=== PATIENT | male | born 1960 | race Caucasian/White ===

== ENCOUNTER 2022-10-08 08:34 | Day surgery (SDC) | payer BC ==
[~2022-10-08] VITALS: Ht 165.1 cm; Wt 86.7 kg
[~2022-10-08 08:34] MED LIST: ACET500 PO; IBUP800 PO
--- NOTE | 2022-10-08 09:50 | NUR ---
Ambulatory in Day Surgery. History, Chart, Medications and Allergies reviewed before start of procedure.Lungs clear T/O to Auscultation. Patient confirms NPO status and agrees with scheduled surgery. Pre-Op teaching done. Pt verbalizes understanding.
--- NOTE | 2022-10-08 17:34 | NUR ---
SHIFT SUMMARY PATIENT NEW ADMIT TO UNIT POD [address] PATTERSON. ALERT AND ORIENTED. POST OP VSS. TOLERATING WATER AND SNACKS. SPINAL STILL IN EFFECT AT THIS TIME. DENIES PAIN, ABLE TO WIGGLE LEFT ANKLE AND TOES. AQUACEL C/D/I. NO VOID AT THIS TIME. NOT OOB AT THIS TIME. IV FLUID RUNNING. WILL CONTINUE TO MONITOR.
--- NOTE | 2022-10-09 04:12 | NUR ---
SHIFT SUMMARY S/P L TKA. SLEPT WELL T/O NIGHT. AQUACEL DRESSING REMAINS CDI WITH POLAR PACK IN PLACE. UP WITH 1 MINIMAL ASSIST USING FWW + GB TO BRP. 2 ROXICODONE/TYLENOL/TORADOL FOR PAIN MANAGEMENT. ROXIE PO. PLANNING TO DC HOME TODAY AFTER THERAPY. USES CALL LIGHT APPROPRIATELY.
[2022-10-09 05:19] LABS: BASOPHILS ABSOLUTE AUTO 0.03 K/mm3 (0.00-0.23); BASOPHILS PERCENT AUTO 0 % (0-2); EOSINOPHILS ABSOLUTE AUTO 0.02 K/mm3 (0.00-0.68); EOSINOPHILS PERCENT AUTO 0 % (0-6); Hematocrit 39.3 % (37.0-53.0); Hemoglobin 13.5 g/dL (13.5-17.5); IMMATURE GRAN ABSOLUTE AUTO 0.06 K/mm3 (0.00-0.10); IMMATURE GRAN PERCENT AUTO 0 % (0-1); LYMPHOCYTES ABSOLUTE AUTO 1.01 K/mm3 (0.84-5.20); LYMPHOCYTES PERCENT AUTO 7 % (21-46); MONOCYTES ABSOLUTE AUTO 1.35 K/mm3 (0.16-1.47); MONOCYTES PERCENT AUTO 9 % (4-13); Mean Corpuscular HGB 30.5 pg (26.0-34.0); Mean Corpuscular HGB Conc 34.4 g/dL (31.5-36.5); Mean Corpuscular Volume 89 fL (80-100); Mean Platelet Volume 10.8 fL (9.1-12.4); NEUTROPHILS ABSOLUTE AUTO 11.86 K/mm3 (1.96-9.15); NEUTROPHILS PERCENT AUTO 83 % (41-73); Platelet Count 255 K/mm3 (150-400); RDW Coefficient Variation 12.2 % (11.7-14.2); RDW Standard Deviation 39.6 fL (35.1-46.3); Red Blood Cell Count 4.43 M/mm3 (4.30-5.90); White Blood Cell Count 14.33 K/mm3 (4.00-11.30)
[2022-10-09 05:39] LABS: Bun/Creatinine Ratio 17.1 (12.0-20.0); Calcium, Blood 8.5 mg/dL (8.5-10.1); Creatinine, Blood 0.82 mg/dL (0.60-1.20); Potassium, Blood 4.4 mmol/L (3.5-5.5)
[2022-10-09] MEDS ORDERED: ASPI81CH PO (07:10)
[2022-10-09] MEDS ORDERED: Percocet 5-3251 EACH PO (07:11)
--- NOTE | 2022-10-09 10:34 | NUR ---
DISCHARGE PT HAS CLEARED THERAPY. PAIN WELL CONTROLLED PER EMAR. EATING, DRINKING, & VOIDING WELL. AMBULATING WELL W/ FWW & GB. DISCUSSED DISCHARGE INSTRUCTIONS & SENT WITH PATIENT. ALSO SENT DRESSINGS, SCRIPTS, & POLAR PACK WITH PT. ESCORTED OUT VIA W/C.
== END 2022-10-09 10:33 | disposition home or self-care (01) ==
LOC: ORSCMMR 08:34 → ORD 10:00 → SURS 15:08 → ORSCMMR 10-09 10:33
PROVIDERS: Orthopaedic Surgery
PROC: 0QPH04Z Removal of Internal Fixation Device from Left Tibia, Open Approach (ICD-10-PCS; principal; 2022-10-08 10:00)
PROC: 0SRD0JA Replacement of Left Knee Joint with Synthetic Substitute, Uncemented, Open Approach (ICD-10-PCS; principal; 2022-10-08 10:00)
PROC: 8E0Y0CZ Robotic Assisted Procedure of Lower Extremity, Open Approach (ICD-10-PCS; principal; 2022-10-08 10:00)
DX: M17.12 Unilateral primary osteoarthritis, left knee (principal)
CPT/HCPCS: 27447; 20985; S2900; 36415; 73560-LT; 80048; 85025; 97110; 97116; 97161; 97530; A9270; C1776; J0171; J0690; J0735; J1885; J2250; J2370; J2704; J2795; J3010; J3370; J7120

== ENCOUNTER 2023-06-17 06:02 | Day surgery (SDC) | payer BC ==
[2023-06-17] VITALS (15 sets, daily range): BP systolic 105–148; BP diastolic 65–88
[~2023-06-17] VITALS: Ht 165.1 cm; Wt 90.9 kg
[~2023-06-17 06:02] MED LIST changes: +ASPI81CH PO; +Percocet 5-3251 EACH PO
--- NOTE | 2023-06-17 07:39 | NUR ---
Surgical site prepped with 2% Chlorhexidine cloth wipe. ARRIVED TO UNIT VIA W/C WAS ABLE TO STAND FOR WEIGHT WELL WALK FROM SCALE TO BED INDEPENDENTLY. History, Chart, Medications and Allergies reviewed before start of procedure. Lungs clear T/O to Auscultation. Patient confirms NPO status and agrees with scheduled surgery. Pre-Op teaching done. Pt verbalizes understanding. BELONGINS PLACED UNDER PT'S GURNEY.
--- NOTE | 2023-06-17 10:21 | NUR ---
CARE ASSUMED OF PATIENT AT 1000. PT RESTING IN BED WITH S/O AT THE BEDSIDE. PT UNABLE TO MOVE OR FEEL BLE R/T SPINAL ANESTHESIA. DRESSING TO R HIP C/D/I. SPINAL ANESTHESIA SITE WNL.
--- NOTE | 2023-06-17 16:00 | NUR ---
Pt. is awake in bed and welcomes my visit. Pt. is pleasant and confidantly shares his herb tradition with this pump servicer. Consider matters of herb and belief and in the process rapport is established. Pts. arrived and we continued to facilitate a life review. Pt. displays evidence of being engaged, aware and fully committed to pursue his PT and recovery. PT arrived to work with Pt. Pt. and spouse both verbalize gratitude for the spiritual care visit and welcome this pump servicer to return.
--- NOTE | 2023-06-17 18:00 | NUR ---
SHIFT SUMMARY PT IS POD#0 FROM R [place] WITH DR. PATTERSON. PAIN HAS BEEN MANAGED WITH PO PAIN MEDICATION. PT IS TOLERATING PO. HE HAS WORKED WITH THERAPY. PT ABLE TO VOID. PT RESTING IN CHAIR, CALL LIGHT WITHIN REACH.
[2023-06-18 00:16] VITALS: BP 138/83
[2023-06-18 04:15] VITALS: BP 148/84
--- NOTE | 2023-06-18 04:55 | NUR ---
SUMMARY PT DISCOMFORT HAS BEEN MINIMAL. PT HAS BEEN AMBULATING WITH GB AND FWW. PT VOIDING WELL AND TAKING IN PO FLUIDS. PT HAS SLEPT SOME DURING SHIFT. DRESSING C/D/I. CALL LIGHT IN REACH.
[2023-06-18 05:31] LABS: BASOPHILS ABSOLUTE AUTO 0.03 K/mm3 (0.00-0.23); BASOPHILS PERCENT AUTO 0 % (0-2); EOSINOPHILS ABSOLUTE AUTO 0.05 K/mm3 (0.00-0.68); EOSINOPHILS PERCENT AUTO 0 % (0-6); Hematocrit 37.4 % (37.0-53.0); Hemoglobin 12.9 g/dL (13.5-17.5); IMMATURE GRAN ABSOLUTE AUTO 0.06 K/mm3 (0.00-0.10); IMMATURE GRAN PERCENT AUTO 1 % (0-1); LYMPHOCYTES ABSOLUTE AUTO 1.01 K/mm3 (0.84-5.20); LYMPHOCYTES PERCENT AUTO 8 % (21-46); MONOCYTES ABSOLUTE AUTO 1.67 K/mm3 (0.16-1.47); MONOCYTES PERCENT AUTO 13 % (4-13); Mean Corpuscular HGB 31.3 pg (26.0-34.0); Mean Corpuscular HGB Conc 34.5 g/dL (31.5-36.5); Mean Corpuscular Volume 91 fL (80-100); Mean Platelet Volume 11.2 fL (9.1-12.4); NEUTROPHILS ABSOLUTE AUTO 10.43 K/mm3 (1.96-9.15); NEUTROPHILS PERCENT AUTO 79 % (41-73); Platelet Count 203 K/mm3 (150-400); RDW Coefficient Variation 11.9 % (11.7-14.2); RDW Standard Deviation 39.6 fL (35.1-46.3); Red Blood Cell Count 4.12 M/mm3 (4.30-5.90); White Blood Cell Count 13.25 K/mm3 (4.00-11.30)
[2023-06-18 06:04] LABS: Bun/Creatinine Ratio 17.8 (12.0-20.0); Calcium, Blood 8.3 mg/dL (8.5-10.1); Creatinine, Blood 0.85 mg/dL (0.60-1.20); Potassium, Blood 4.2 mmol/L (3.5-5.5)
[2023-06-18 08:07] VITALS: BP 147/83
[2023-06-18] MEDS ORDERED: ASPI81CH PO (08:09)
[2023-06-18] MEDS ORDERED: Percocet 5-3251 EACH PO (08:09)
--- NOTE | 2023-06-18 11:41 | NUR ---
DISCHARGE PT HAS CLEARED THERAPY. PAIN WELL CONTROLLED. EATING, DRINKING, & VOIDING WELL. DRSGS & POLAR PACK SENT w/ PT. ALREADY HAS RX FILLED. ESCORTED OUT VIA W/C.
== END 2023-06-18 11:41 | disposition home or self-care (01) ==
LOC: ORSCMMR 06:02 → ORD 07:30 → ORSCMMR 07:30 → SURS 10:04 → ORSCMMR 06-18 11:41
PROVIDERS: Orthopaedic Surgery
PROC: 0SR90JZ Replacement of Right Hip Joint with Synthetic Substitute, Open Approach (ICD-10-PCS; principal; 2023-06-17 07:30)
DX: M16.11 Unilateral primary osteoarthritis, right hip (principal); Z96.652 Presence of left artificial knee joint
CPT/HCPCS: 36415; 72170; 80048; 85025; 94760; 97110; 97116; 97162; A9270; C1776; J0171; J0690; J0735; J1100; J1885; J2250; J2371; J2405; J2704; J2795; J3010; J7120